=== PATIENT | female | born 1990 ===

== ENCOUNTER 2018-01-24 20:49 | Emergency (ER) | payer SELFPAY ==
--- NOTE | 2018-01-24 22:25 | CT ---
EXAM: CT Head Without Intravenous Contrast CLINICAL HISTORY: 27 years old, female; Condition or disease; Headache; Additional info: Headache with facial numbness TECHNIQUE: Axial computed tomography images of the head/brain without intravenous contrast. All CT scans at this facility use one or more dose reduction techniques, viz.: automated exposure control; ma/kV adjustment per patient size (including targeted exams where dose is matched to indication; i.e. head); or iterative reconstruction technique. COMPARISON: No relevant prior studies available. FINDINGS: Brain: Unremarkable. No significant white matter disease. No edema. No intracranial mass, mass effect, or midline shift. Ventricles: Unremarkable. No ventriculomegaly. Bones/joints: Unremarkable. No acute fracture. Soft tissues: Unremarkable. Sinuses: Unremarkable as visualized. No acute sinusitis. Mastoid air cells: Unremarkable as visualized. No mastoid effusion. IMPRESSION: No acute intracranial abnormality.
--- NOTE | 2018-01-24 22:38 | C.PDOC ---
History Of Present Illness 27 year old female presents to the ER with a complaint of a headache to the bilateral temporal area since yesterday. She also reports intermittent numbness to the hands and face. Patient has been taking tylenol at home with no relief. Denies fever, recent injury, or Hx of headache. Time Seen by Provider: 01/24/18 21:09 Chief Complaint (Nursing): Headache History Per: Patient History/Exam Limitations: no limitations Onset/Duration Of Symptoms: Hrs Current Symptoms Are (Timing): Still Present Preceeding Symptoms: None Associated Symptoms: denies: Photophobia, Blurred Vision, Nausea, Vomiting, Extremity Weakness Recent travel outside of the [place]: No Past Medical History Reviewed: Historical Data, Nursing Documentation, Vital Signs Vital Signs: Last Vital Signs Temp 98.5 F 01/24/18 20:58 Pulse 74 01/24/18 20:58 Resp 20 01/24/18 22:46 BP 128/86 01/24/18 20:58 Pulse Ox 100 01/24/18 23:00 Family History: States: Unknown Family Hx - Social History Hx Alcohol Use: No Hx Substance Use: No - Immunization History Hx Influenza Vaccination: No Hx Pneumococcal Vaccination: No Review Of Systems Constitutional: Negative for: Fever, Chills Respiratory: Negative for: Cough Gastrointestinal: Negative for: Nausea, Vomiting Neurological: Positive for: Headache. Negative for: Dizziness Physical Exam - Physical Exam Appears: Non-toxic Skin: Normal Color, Warm, Dry Head: Atraumatic, Normacephalic Eye(s): bilateral: Normal Inspection, PERRL, EOMI Oral Mucosa: Moist Neck: Normal, Supple Chest: Symmetrical, No Tenderness Cardiovascular: Rhythm Regular Respiratory: Normal Breath Sounds, No Rales, No Rhonchi, No Wheezing Extremity: Normal ROM (x4) Neurological/Psych: Oriented x3, Normal Speech ED Course And Treatment O2 Sat by Pulse Oximetry: 100 (Room air) Pulse Ox Interpretation: Normal - CT Scan/US CT head Other Rad Studies (CT/US): Read By Radiologist, Radiology Report Reviewed CT/US Interpretation: Accession No. : [id number]. Patient Name / ID : TATY IZAGUIRRE / [id number]. Exam Date : 01/24/2018 22:04:14 ( Approved ). Study Comment : Sex / Age : F / 27Y. Creator : ELIAN SILVA. Dictator : Composing Machine Operator : Sustainability Coordinator : ELIAN SILVA. Approver2 : Report Date : 22:25:00. My Comment : . [facility] Rad[facility]. [address] [place] [address]. Tel. no. [phone]. . . Patient Name: ZINA POSEY . Pt. Address: [address] [place] [address]. Rec #: [id number]. [place] [address]: Cyndy Curtis PA-C. Pt Order Location: [facility] : 1990 Female Age: 27 Order #: [id number]. Reason for exam: headache with facial numbness. . . . . . CT Scan. . . HEAD W/O CONTRAST Exam Date: . . This imaging exam was performed at [facility]. EXAM: CT Head Without Intravenous Contrast. . CLINICAL HISTORY: 27 years old, female; Condition or disease; Headache; Additional info: Headache with facial numbness. . TECHNIQUE: Axial computed tomography images of the head/brain without intravenous. contrast. All CT scans at this facility use one or more dose reduction. techniques, viz.: automated exposure control; ma/kV adjustment per patient size. (including targeted exams where dose is matched to indication ; i.e. head); or. iterative reconstruction technique. . COMPARISON: No relevant prior studies available. . FINDINGS: Brain: Unremarkable. No significant white matter disease. No edema. No. intracranial mass, mass effect , or midline shift. Ventricles: Unremarkable. No ventriculomegaly. Bones/ joints: Unremarkable. No acute fracture. Soft tissues: Unremarkable. Sinuses: Unremarkable as visualized. No acute sinusitis. Mastoid air cells: Unremarkable as visualized. No mastoid effusion. . IMPRESSION: No acute intracranial abnormality. . Dictated By: Elian Silva MD. Dictated Date/ Time: 01/24/182224. Signed By: Elian Silva MD. Date Signed: 01/24/182224. Transcribed By: [facility]. Transcribe Date/Time: 01/24/182224. IZAMD/MT Progress Note: CT head ordered, results were negative. Reglan administered. On reevaluation, patient is resting comfortably in the ER in no acute distress, vitals are stable, will discharge home with instructions to follow up with PMD or return if symptoms worsen. Disposition - Disposition Referrals: [facility] [Outside] Disposition: HOME/ ROUTINE Disposition Time: 22:37 Condition: IMPROVED Additional Instructions: Follow up in Clinic [id number] 1-2 days. Return to ED if feel worse. 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 - Scribe Statement The provider has reviewed the documentation as recorded by the Scribe Shade Wright All medical record entries made by the Scribe were at my direction and personally dictated by me. I have reviewed the chart and agree that the record accurately reflects my personal performance of the history, physical exam, medical decision making, and the department course for this patient. I have also personally directed, reviewed, and agree with the discharge instructions and disposition.
[2018-01-25 11:46] VITALS: BP 128/86; PULSE 74; RESP 20; TEMP 98.5; O2SAT 100
== END 2018-01-24 22:46 | disposition home or self-care (01) ==
LOC: C.ER 20:49
DX: R51 Headache (principal)
CPT/HCPCS: 70450; 96372; 99284; J2765